=== PATIENT | male | born 1995 | race African-American/Black ===

== ENCOUNTER 2023-09-15 23:04 | Emergency (ER) | payer BC ==
[~2023-09-15] VITALS: Ht 182.9 cm; Wt 81.6 kg
[2023-09-15] MEDS ORDERED: LIDOCAINE HCL 1% 20 ML VIAL ONE (23:30)
[2023-09-15] MEDS: LIDOCAINE HCL 1% 20 ML VIAL IJ ONE (23:34)
[2023-09-15 23:56] VITALS: BP 136/88; O2SAT 97
== END 2023-09-16 00:20 | disposition home or self-care (01) ==
LOC: ER 23:10
DX: S63.287A Dislocation of proximal interphalangeal joint of left little finger, initial encounter (principal); X58.XXXA Exposure to other specified factors, initial encounter; Y93.67 Activity, basketball; Y92.89 Other specified places as the place of occurrence of the external cause; Y99.8 Other external cause status
CPT/HCPCS: 99285; 26770; 73130; 99152; 73140; J3490; A4606; A4663; G0500